=== PATIENT | female | born 1980 | race Caucasian/White ===

== ENCOUNTER 2016-10-22 22:42 | Emergency (ER) | payer OTHER ==
[~2016-10-22] VITALS: Ht 160 cm; Wt 141.7 kg
[~2016-10-22 22:42] MED LIST: ESCI20TA PO
[2016-10-22 22:49] VITALS: BP 144/92
--- NOTE | 2016-10-22 23:10 | NUR ---
TO ER BED 8
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
[2016-10-22] MEDS ORDERED: NACL 0.9% 1,000 ML IV ONE (23:45)
[2016-10-22] MEDS ORDERED: KETOROLAC 30 MG/ML VIAL IVP ONE (23:45)
[2016-10-23 00:07] LABS: ANION GAP 13.1 (8-16); CALCIUM 9.1 mg/dL (8.5-10.1); CARBON DIOXIDE 29.8 mmol/L (21-32); CREATININE 0.8 mg/dL (0.6-1.3); POTASSIUM 3.9 mmol/L (3.5-5.1)
[2016-10-23] MEDS ORDERED: NACL 0.9% 1,000 ML IV ONE (00:15)
--- NOTE | 2016-10-23 01:25 | NUR ---
IV removed, catheter intact and site benign. Applied folded 4x4 gauze and tape to stop bleeding.
--- NOTE | 2016-10-23 01:31 | NUR ---
Patient discharged with v/s stable. Written and verbal after care instructions given and explained. Patient alert, oriented and verbalized understanding of instructions. Ambulatory with steady gait. All questions addressed prior to discharge. ID band removed. Patient advised to follow up with PMD. Rx of FIORICET 50/325/40 given. Patient educated on indication of medication including possible reaction and side effects. Opportunity to ask questions provided and answered.
[2016-10-23 01:32] VITALS: BP 132/87
== END 2016-10-23 01:32 | disposition home or self-care (01) ==
LOC: MED 22:42
DX: R51 Headache (principal); E11.65 Type 2 diabetes mellitus with hyperglycemia; Z88.1 Allergy status to other antibiotic agents
CPT/HCPCS: 36415; 70450; 80048; 81002; 81025; 82948; 96361; 96374; 99285; J1885; J7030; 93005

== ENCOUNTER 2016-11-08 00:40 | Emergency (ER) | payer OTHER ==
[~2016-11-08] VITALS: Ht 160 cm; Wt 140.8 kg
[2016-11-08 00:43] VITALS: BP 151/93
--- NOTE | 2016-11-08 02:20 | NUR ---
PATIENT LEFT WITHOUT BEING SEEN BY DR. VALENTINE. NO FURTHER CARE PROVIDED FOR PATIENT.
== END 2016-11-08 02:20 | disposition left against medical advice (07) ==
LOC: MED 00:40
DX: R07.89 Other chest pain (principal); R19.7 Diarrhea, unspecified; Z53.21 Procedure and treatment not carried out due to patient leaving prior to being seen by health care provider
CPT/HCPCS: 93005

== ENCOUNTER 2018-01-07 20:36 | Emergency (ER) | payer OTHER ==
[~2018-01-07] VITALS: Ht 160 cm; Wt 140.7 kg
[2018-01-07 20:47] VITALS: BP 137/83
--- NOTE | 2018-01-07 21:02 | NUR ---
EKG OK BY ER MD DR WANG. PT IN ER [facility]
--- NOTE | 2018-01-07 22:24 | NUR ---
PT TAKEN TO BED 3
--- NOTE | 2018-01-07 22:25 | NUR ---
ASSUMED CARE OF PT AT THIS TIME. C/O RIGHT SIDED HICKS, NECK PAIN, AND CP X 1 DAY. AAOX4 WITH EVEN AND STEADY GAIT; PATIENT STATES PAIN OF 5/10; VSS; PATIENT POSITIONED FOR COMFORT; HOB ELEVATED; BEDRAILS UP X2; BED DOWN. ER MD MADE AWARE OF PT STATUS. WILL CONTINUE TO MONITOR.
--- NOTE | 2018-01-07 23:09 | NUR ---
Dr. Almanza evaluating patient at bedside.
[2018-01-07] MEDS ORDERED: KETOROLAC 60 MG/2 ML VIAL IM ONE (23:25)
[2018-01-07 23:44] VITALS: BP 138/84
== END 2018-01-07 23:44 | disposition home or self-care (01) ==
LOC: MED 20:36
DX: R51 Headache (principal); E11.9 Type 2 diabetes mellitus without complications; Z88.1 Allergy status to other antibiotic agents; Z79.899 Other long term (current) drug therapy
CPT/HCPCS: 82948; 96372; 99283; J1885; 81002; 81025

== ENCOUNTER 2018-02-26 23:52 | Emergency (ER) | payer OTHER ==
[~2018-02-26] VITALS: Ht 160 cm; Wt 142.2 kg
[2018-02-26 23:59] VITALS: BP 143/93
--- NOTE | 2018-02-27 00:06 | NUR ---
PT TO ER BED 12
[2018-02-27] MEDS ORDERED: LORazepam 1 MG TAB PO ONE (00:20)
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
[2018-02-27 01:12] VITALS: BP 155/56
== END 2018-02-27 01:12 | disposition home or self-care (01) ==
LOC: MED 23:52
DX: S33.5XXA Sprain of ligaments of lumbar spine, initial encounter (principal); E11.9 Type 2 diabetes mellitus without complications; Z88.1 Allergy status to other antibiotic agents; Z88.6 Allergy status to analgesic agent; V49.9XXA Car occupant (driver) (passenger) injured in unspecified traffic accident, initial encounter; Y93.I9 Activity, other involving external motion; Y92.89 Other specified places as the place of occurrence of the external cause; Y99.8 Other external cause status
CPT/HCPCS: 72110; 82948; 99284

== ENCOUNTER 2018-04-29 23:58 | Emergency (ER) | payer OTHER ==
[~2018-04-29] VITALS: Ht 160 cm; Wt 143.8 kg
[2018-04-30 00:01] VITALS: BP 139/85
--- NOTE | 2018-04-30 00:01 | NUR ---
TO BED # 3 AMBULATORY, REPORT GIVEN TO HELLEN GARRETT
[2018-04-30 00:05] VITALS: BP 139/85
--- NOTE | 2018-04-30 00:05 | NUR ---
PATIENT PRESENTS TO ED WITH C/O HEADACHE/EARACHE AND ANXIETY PT DENIES N/V/D; SKIN IS PINK/WARM/DRY; AAOX4 WITH EVEN AND STEADY GAIT; LUNGS CLEAR BL; HR EVEN AND REGULAR; PATIENT STATES PAIN OF 8/10 AT THIS TIME; VSS; PATIENT POSITIONED FOR COMFORT; HOB ELEVATED; BEDRAILS UP X2; BED DOWN. ER MD MADE AWARE OF PT STATUS.
--- NOTE | 2018-04-30 00:27 | NUR ---
Dr. Aguirre evaluating patient at bedside.
--- NOTE | 2018-04-30 00:32 | NUR ---
LAB AT BEDSIDE
[2018-04-30] MEDS ORDERED: NACL 0.9% 1,000 ML IV ONE (00:35)
[2018-04-30 00:46] LABS: BASOPHILS % (AUTO) 0.4 % (0.0-2.0); EOSINOPHILS # (AUTO) 0.2 K/uL (0-0.4); EOSINOPHILS % (AUTO) 2.2 % (0.0-4.0); HEMATOCRIT 41.6 % (36-48); HEMOGLOBIN 13.4 g/dL (12.0-16.0); LYMPHOCYTES # (AUTO) 2.5 K/uL (2.5-16.5); LYMPHOCYTES % (AUTO) 26.9 % (20.5-51.1); MEAN CORPUSCULAR HEMOGLOBIN 26 pg (27-31); MEAN CORPUSCULAR HGB CONC 32 g/dL (33-37); MEAN CORPUSCULAR VOLUME 81.9 fL (80-94); MONOCYTES # (AUTO) 0.5 K/uL (0.8-1.0); MONOCYTES % (AUTO) 5.4 % (1.7-9.3); NEUTROPHILS % (AUTO) 65.1 % (42.2-75.2); PLATELET COUNT (AUTO) 247 K/uL (140-450); RED BLOOD CELL COUNT(AUTO) 5.08 MIL/uL (4.20-5.40); RED CELL DISTRIBUTION WIDTH 14.9 % (11.6-13.7); WHITE BLOOD COUNT (AUTO) 9.2 K/uL (4.8-10.8)
[2018-04-30 00:56] LABS: ANION GAP 7.2 (8-16); CARBON DIOXIDE 31.6 mmol/L (21-32); CREATININE 0.7 mg/dL (0.6-1.3); POTASSIUM 3.8 mmol/L (3.5-5.1)
[2018-04-30 01:11] LABS: ALBUMIN 3.1 g/dL (3.4-5.0); FREE T4 (FREE THYROXINE) 0.96 ng/dL (0.76-1.46); THYROID STIMULATING HORMONE 3.5 uIU/mL (0.34-3.74); TOTAL BILIRUBIN 0.2 mg/dL (0.0-1.0)
[2018-04-30] MEDS ORDERED: FLUCONAZOLE 100 MG TAB PO ONE (01:25)
[2018-04-30 01:27] LABS: APPEARANCE,URINE CLEAR (CLEAR); BILIRUBIN,URINE NEGATIVE (NEGATIVE); BLOOD, URINE NEGATIVE (NEGATIVE); COLOR,URINE YELLOW (YELLOW); LEUKOCYTE ESTERASE ,URINE NEGATIVE (NEGATIVE); NITRITE, URINE NEGATIVE (NEGATIVE); UGLUCOSE 3+ (NEGATIVE)
--- NOTE | 2018-04-30 01:37 | NUR ---
IVF DONE, CALLED HOUSE SUP FOR PO MEDS.
[2018-04-30] MEDS ORDERED: FLUCONAZOLE 100 MG TAB ONE (01:43)
[2018-04-30 01:54] LABS: RBC,URINE 0-5 (RARE) /HPF (0-5); WBC,URINE 0-5 (RARE) /HPF (0-5); YEAST,URINE Rare /HPF (None Seen)
--- NOTE | 2018-04-30 01:55 | NUR ---
Patient discharged with v/s stable. Written and verbal after care instructions given and explained. Patient verbalized understanding. Ambulatory with steady gait. All questions addressed prior to discharge. Advised to follow up with PMD.
== END 2018-04-30 01:55 | disposition home or self-care (01) ==
LOC: MED 23:58
DX: F41.9 Anxiety disorder, unspecified (principal); B37.9 Candidiasis, unspecified; E11.9 Type 2 diabetes mellitus without complications; Z88.1 Allergy status to other antibiotic agents; Z88.6 Allergy status to analgesic agent; Z79.899 Other long term (current) drug therapy
CPT/HCPCS: 36415; 80053; 81001; 81025; 84439; 84443; 85025; 93005; 99284; J7030

== ENCOUNTER 2018-06-13 22:48 | Emergency (ER) | payer OTHER ==
[~2018-06-13] VITALS: Ht 160 cm; Wt 143.5 kg
[2018-06-13 23:08] VITALS: BP 117/82
[2018-06-14] MEDS ORDERED: DICYCLOMINE 20 MG/2 ML VIAL IM ONE
[2018-06-14] MEDS ORDERED: LORazepam 1 MG TAB PO ONE
[2018-06-14 00:19] LABS: BASOPHILS # (AUTO) 0.1 K/uL (0.00-0.22); BASOPHILS % (AUTO) 0.6 % (0.0-2.0); EOSINOPHILS # (AUTO) 0.2 K/uL (0-0.4); EOSINOPHILS % (AUTO) 1.9 % (0.0-4.0); HEMATOCRIT 42.5 % (36-48); LYMPHOCYTES # (AUTO) 2.8 K/uL (2.5-16.5); LYMPHOCYTES % (AUTO) 26.9 % (20.5-51.1); MEAN CORPUSCULAR HEMOGLOBIN 27 pg (27-31); MEAN CORPUSCULAR HGB CONC 33 g/dL (33-37); MEAN CORPUSCULAR VOLUME 81.6 fL (80-94); MONOCYTES # (AUTO) 0.5 K/uL (0.8-1.0); MONOCYTES % (AUTO) 4.8 % (1.7-9.3); NEUTROPHILS # (AUTO) 6.8 K/uL (1.8-7.7); NEUTROPHILS % (AUTO) 65.8 % (42.2-75.2); PLATELET COUNT (AUTO) 267 K/uL (140-450); RED BLOOD CELL COUNT(AUTO) 5.21 MIL/uL (4.20-5.40); RED CELL DISTRIBUTION WIDTH 14.7 % (11.6-13.7); WHITE BLOOD COUNT (AUTO) 10.3 K/uL (4.8-10.8)
[2018-06-14 00:30] LABS: ANION GAP 10.8 (8-16); CARBON DIOXIDE 30.9 mmol/L (21-32); CREATININE 0.8 mg/dL (0.6-1.3); POTASSIUM 3.7 mmol/L (3.5-5.1)
[2018-06-14 00:36] LABS: ALBUMIN 3.3 g/dL (3.4-5.0); TOTAL BILIRUBIN 0.3 mg/dL (0.0-1.0)
[2018-06-14 01:46] VITALS: BP 103/50
== END 2018-06-14 01:46 | disposition home or self-care (01) ==
LOC: MED 22:48
DX: R10.30 Lower abdominal pain, unspecified (principal); R10.11 Right upper quadrant pain; E11.9 Type 2 diabetes mellitus without complications; Z88.1 Allergy status to other antibiotic agents; Z88.6 Allergy status to analgesic agent; Z79.899 Other long term (current) drug therapy; Z98.51 Tubal ligation status
CPT/HCPCS: 36415; 74176; 80053; 81002; 81025; 82948; 83690; 85025; 96372; 99284; J0500

== ENCOUNTER 2018-06-28 12:52 | Emergency (ER) | payer OTHER ==
[~2018-06-28] VITALS: Ht 160 cm; Wt 144.8 kg
[2018-06-28 12:55] VITALS: BP 120/80
--- NOTE | 2018-06-28 13:16 | NUR ---
38 yo f bib self w/ c/o heavy vaginal bleeding x 4 days w/ back pain. pt reports she has not had a period in 1 year or more. wearing 4 pads and bleeding through her clothing. pmd told her to go to er. pt reports CP that began 30 min ago but thinks it is her anxiety because of fear of bleeding through in public, since [place]. rr even and unlabored, o2 sat 96%, color appropriate for ethnicity, speaking in full complete sentences. aaox4. denies radiation to arm or numbness.
--- NOTE | 2018-06-28 13:21 | NUR ---
US AT BEDSIDE.
[2018-06-28 13:28] LABS: BASOPHILS % (AUTO) 0.6 % (0.0-2.0); EOSINOPHILS # (AUTO) 0.2 K/uL (0-0.4); EOSINOPHILS % (AUTO) 2.9 % (0.0-4.0); HEMOGLOBIN 13.1 g/dL (12.0-16.0); LYMPHOCYTES # (AUTO) 2.1 K/uL (2.5-16.5); LYMPHOCYTES % (AUTO) 29.3 % (20.5-51.1); MEAN CORPUSCULAR HEMOGLOBIN 26 pg (27-31); MEAN CORPUSCULAR HGB CONC 32 g/dL (33-37); MEAN CORPUSCULAR VOLUME 81.7 fL (80-94); MONOCYTES # (AUTO) 0.3 K/uL (0.8-1.0); MONOCYTES % (AUTO) 4.1 % (1.7-9.3); NEUTROPHILS # (AUTO) 4.6 K/uL (1.8-7.7); NEUTROPHILS % (AUTO) 63.1 % (42.2-75.2); PLATELET COUNT (AUTO) 275 K/uL (140-450); RED BLOOD CELL COUNT(AUTO) 5.02 MIL/uL (4.20-5.40); WHITE BLOOD COUNT (AUTO) 7.3 K/uL (4.8-10.8)
[2018-06-28 13:34] LABS: ANION GAP 7.9 (8-16); CARBON DIOXIDE 29.6 mmol/L (21-32); CREATININE 0.8 mg/dL (0.6-1.3); POTASSIUM 3.5 mmol/L (3.5-5.1)
[2018-06-28 13:40] LABS: ALBUMIN 3.2 g/dL (3.4-5.0); PROTHROMBIN TIME 10.2 secs (10.8-13.4); TOTAL BILIRUBIN 0.4 mg/dL (0.0-1.0)
[2018-06-28] MEDS ORDERED: KETOROLAC 60 MG/2 ML VIAL IM ONE (14:10)
[2018-06-28 14:54] VITALS: BP 120/80
== END 2018-06-28 14:54 | disposition home or self-care (01) ==
LOC: MED 12:52
DX: N93.8 Other specified abnormal uterine and vaginal bleeding (principal); M54.5 Low back pain; E11.9 Type 2 diabetes mellitus without complications; Z88.1 Allergy status to other antibiotic agents; Z88.6 Allergy status to analgesic agent; Z79.899 Other long term (current) drug therapy
CPT/HCPCS: 36415; 76830; 80053; 82948; 85025; 85610; 85730; 96372; 99284; J1885; Q0092

== ENCOUNTER 2018-08-03 01:01 | Emergency (ER) | payer OTHER ==
[~2018-08-03] VITALS: Ht 160 cm; Wt 136.5 kg
[2018-08-03 01:08] VITALS: BP 145/86
--- NOTE | 2018-08-03 01:16 | NUR ---
PT AMBULATED TO BED 9 WITH VSS. PROVIDED WITH URINE CUP.
--- NOTE | 2018-08-03 01:29 | NUR ---
LAB AT BEDSIDE DRAWING LABS.
--- NOTE | 2018-08-03 01:38 | NUR ---
BIB SELF CO POUNDING CHEST WITH 5/10 TIGHTNESS TO CHEST SINCE 2099. PT ALSO REPORTS INTERMITTENT EPISODES OF DIZZINESS X 3 DAYS. DENIES SOB, OR RADIATING CHEST PAIN. PMH: ANXIETY, DEPRESSION, DM. RX: XANAX, MECLAZINE, JANUVIA, LEXAPRO.
--- NOTE | 2018-08-03 01:40 | NUR ---
XRAY AT BEDSIDE.
[2018-08-03 01:51] LABS: BASOPHILS % (AUTO) 0.3 % (0.0-2.0); EOSINOPHILS # (AUTO) 0.3 K/uL (0-0.4); EOSINOPHILS % (AUTO) 2.8 % (0.0-4.0); HEMATOCRIT 41.4 % (36-48); HEMOGLOBIN 13.6 g/dL (12.0-16.0); LYMPHOCYTES # (AUTO) 2.6 K/uL (2.5-16.5); LYMPHOCYTES % (AUTO) 28.8 % (20.5-51.1); MEAN CORPUSCULAR HEMOGLOBIN 27 pg (27-31); MEAN CORPUSCULAR HGB CONC 33 g/dL (33-37); MEAN CORPUSCULAR VOLUME 81.1 fL (80-94); MONOCYTES # (AUTO) 0.5 K/uL (0.8-1.0); MONOCYTES % (AUTO) 5.2 % (1.7-9.3); NEUTROPHILS # (AUTO) 5.6 K/uL (1.8-7.7); NEUTROPHILS % (AUTO) 62.9 % (42.2-75.2); PLATELET COUNT (AUTO) 303 K/uL (140-450); RED BLOOD CELL COUNT(AUTO) 5.11 MIL/uL (4.20-5.40); RED CELL DISTRIBUTION WIDTH 15.1 % (11.6-13.7)
[2018-08-03] MEDS ORDERED: ASPIRIN 81 MG TAB.CHEW PO ONE (02:05)
[2018-08-03] MEDS ORDERED: ALPRAZolam 0.5 MG TAB PO ONE (02:05)
[2018-08-03 02:13] LABS: ALBUMIN 3.3 g/dL (3.4-5.0); ANION GAP 11.7 (8-16); CARBON DIOXIDE 28.8 mmol/L (21-32); CREATININE 0.7 mg/dL (0.6-1.3); POTASSIUM 3.5 mmol/L (3.5-5.1); TOTAL BILIRUBIN 0.2 mg/dL (0.0-1.0)
[2018-08-03 03:12] VITALS: BP 138/78
== END 2018-08-03 03:08 | disposition home or self-care (01) ==
LOC: MED 01:01
DX: F41.9 Anxiety disorder, unspecified (principal); E11.9 Type 2 diabetes mellitus without complications; I10 Essential (primary) hypertension; Z88.1 Allergy status to other antibiotic agents; Z79.899 Other long term (current) drug therapy
CPT/HCPCS: 36415; 71045; 80053; 81025; 84484; 85025; 85379; 87086; 93005; 99284

== ENCOUNTER 2018-10-16 00:30 | Emergency (ER) | payer OTHER ==
[~2018-10-16] VITALS: Ht 160 cm; Wt 143.5 kg
[2018-10-16 00:30] VITALS: BP 131/64
[2018-10-16 00:33] VITALS: BP 131/64
--- NOTE | 2018-10-16 00:33 | NUR ---
TO LOBBY A/W BED , AMBULATORY
--- NOTE | 2018-10-16 00:40 | NUR ---
PATIENT LEFT WITHOUT BEING SEEN BY DR. TODD. NO FURTHER CARE PROVIDED FOR PATIENT.
--- NOTE | 2018-10-16 00:45 | NUR ---
PATIENT CALLED FOR THE SECOND TIME NO RESPONSE.
== END 2018-10-16 00:40 | disposition left against medical advice (07) ==
LOC: MED 00:30
DX: R42 Dizziness and giddiness (principal); N89.8 Other specified noninflammatory disorders of vagina; L29.9 Pruritus, unspecified; Z53.21 Procedure and treatment not carried out due to patient leaving prior to being seen by health care provider

== ENCOUNTER 2018-10-21 02:15 | Emergency (ER) | payer OTHER ==
[~2018-10-21] VITALS: Ht 160 cm; Wt 163.3 kg
[2018-10-21 02:23] VITALS: BP 121/65
--- NOTE | 2018-10-21 02:25 | NUR ---
TO LOBBY A/W BED, AMBULATORY
--- NOTE | 2018-10-21 02:30 | NUR ---
EKG DONE ERMD NOTED, WITH NSR RESULT.
--- NOTE | 2018-10-21 02:55 | NUR ---
PT TAKEN TO BED 9. AMBULATORY STEADY GAIT.
[2018-10-21 04:14] LABS: BASOPHILS % (AUTO) 0.6 % (0.0-2.0); EOSINOPHILS # (AUTO) 0.2 K/uL (0-0.4); EOSINOPHILS % (AUTO) 2.5 % (0.0-4.0); HEMATOCRIT 41.1 % (36-48); HEMOGLOBIN 13.5 g/dL (12.0-16.0); LYMPHOCYTES # (AUTO) 2.5 K/uL (2.5-16.5); MEAN CORPUSCULAR HEMOGLOBIN 26 pg (27-31); MEAN CORPUSCULAR HGB CONC 33 g/dL (33-37); MEAN CORPUSCULAR VOLUME 78.1 fL (80-94); MONOCYTES # (AUTO) 0.4 K/uL (0.8-1.0); MONOCYTES % (AUTO) 4.7 % (1.7-9.3); NEUTROPHILS # (AUTO) 5.1 K/uL (1.8-7.7); NEUTROPHILS % (AUTO) 62.2 % (42.2-75.2); PLATELET COUNT (AUTO) 284 K/uL (140-450); RED BLOOD CELL COUNT(AUTO) 5.26 MIL/uL (4.20-5.40); RED CELL DISTRIBUTION WIDTH 15.1 % (11.6-13.7); WHITE BLOOD COUNT (AUTO) 8.3 K/uL (4.8-10.8)
[2018-10-21 04:30] LABS: ANION GAP 12.1 (8-16); CARBON DIOXIDE 27.5 mmol/L (21-32); CREATININE 0.8 mg/dL (0.6-1.3); POTASSIUM 3.6 mmol/L (3.5-5.1)
[2018-10-21 04:34] LABS: ALBUMIN 3.3 g/dL (3.4-5.0); TOTAL BILIRUBIN 0.3 mg/dL (0.0-1.0)
--- NOTE | 2018-10-21 04:35 | NUR ---
PT TAKEN TO RAD
[2018-10-21 04:36] LABS: CREATINE KINASE MB 1.3 ng/mL (0-3.6)
--- NOTE | 2018-10-21 04:49 | NUR ---
PT TAKEN TO CT VIA WC.
--- NOTE | 2018-10-21 04:52 | NUR ---
PT RETURN FROM RAD
[2018-10-21 05:48] VITALS: BP 113/56
== END 2018-10-21 05:48 | disposition home or self-care (01) ==
LOC: MED 02:15
DX: R42 Dizziness and giddiness (principal); E11.9 Type 2 diabetes mellitus without complications; I10 Essential (primary) hypertension; Z79.899 Other long term (current) drug therapy; Z88.5 Allergy status to narcotic agent; Z88.1 Allergy status to other antibiotic agents
CPT/HCPCS: 36415; 70450; 71045; 80053; 81002; 81025; 82550; 82553; 84484; 85025; 93005; 99284; Q0092

== ENCOUNTER 2018-11-09 13:12 | Emergency (ER) | payer OTHER ==
[~2018-11-09] VITALS: Ht 160 cm; Wt 137.4 kg
[2018-11-09 13:18] VITALS: BP 161/89
--- NOTE | 2018-11-09 13:34 | NUR ---
Patient ambulated to bed 6. RN evaluating patient at bedside.
--- NOTE | 2018-11-09 13:35 | NUR ---
C/O epigastric pain and headache 11/27, sharp & constant since yesterday. Pt states she went to urgent care yesterday and was given insulin. Pt states she came to the ER because she continued to have epigastric pain/bloating and non-radiating headache. Neuro check intact, pt alert and answering questions appropriately. LBM today, regular. Abdomen flat, soft and non-tender. pt denied n/v/d/fever. FSBS 247. bed in low position, side rail up x1.
--- NOTE | 2018-11-09 13:37 | NUR ---
Dr. Hendricks evaluating patient at bedside.
[2018-11-09] MEDS ORDERED: KETOROLAC 60 MG/2 ML VIAL IM ONE (13:45)
[2018-11-09 14:25] VITALS: BP 157/85
--- NOTE | 2018-11-09 14:25 | NUR ---
Patient discharged with v/s stable. Written and verbal after care instructions given and explained. Patient alert, oriented and verbalized understanding of instructions. Ambulatory with steady gait. All questions addressed prior to discharge. ID band removed. Patient advised to follow up with PMD. Rx of norco, ibuprofen, zofran given. Patient educated on indication of medication including possible reaction and side effects. Opportunity to ask questions provided and answered.
== END 2018-11-09 14:25 | disposition home or self-care (01) ==
LOC: MED 13:12
DX: R51 Headache (principal); R10.13 Epigastric pain; M54.2 Cervicalgia; E11.65 Type 2 diabetes mellitus with hyperglycemia; I10 Essential (primary) hypertension; Z88.1 Allergy status to other antibiotic agents; Z79.899 Other long term (current) drug therapy; Z98.51 Tubal ligation status
CPT/HCPCS: 81002; 81025; 82948; 96372; 99283; J1885

== ENCOUNTER 2018-12-19 01:54 | Emergency (ER) | payer OTHER ==
[~2018-12-19] VITALS: Ht 160 cm; Wt 145.7 kg
[2018-12-19 02:00] VITALS: BP 121/82
--- NOTE | 2018-12-19 02:00 | NUR ---
TO BED # 07 AMBULATORY
[2018-12-19] MEDS ORDERED: FLUCONAZOLE 100 MG TAB PO ONE (02:15)
[2018-12-19] MEDS ORDERED: INSULIN REGULAR, HUMAN 100 UNIT/ML VIAL SUBQ ONE (02:15)
[2018-12-19 02:27] LABS: BASOPHILS # (AUTO) 0.1 K/uL (0.00-0.22); BASOPHILS % (AUTO) 1.7 % (0.0-2.0); EOSINOPHILS # (AUTO) 0.2 K/uL (0-0.4); EOSINOPHILS % (AUTO) 2.1 % (0.0-4.0); HEMATOCRIT 40.9 % (36-48); HEMOGLOBIN 13.5 g/dL (12.0-16.0); LYMPHOCYTES # (AUTO) 2.1 K/uL (2.5-16.5); LYMPHOCYTES % (AUTO) 28.9 % (20.5-51.1); MEAN CORPUSCULAR HEMOGLOBIN 26 pg (27-31); MEAN CORPUSCULAR HGB CONC 33 g/dL (33-37); MEAN CORPUSCULAR VOLUME 77.5 fL (80-94); MONOCYTES # (AUTO) 0.3 K/uL (0.8-1.0); MONOCYTES % (AUTO) 3.8 % (1.7-9.3); NEUTROPHILS # (AUTO) 4.6 K/uL (1.8-7.7); NEUTROPHILS % (AUTO) 63.5 % (42.2-75.2); PLATELET COUNT (AUTO) 297 K/uL (140-450); RED BLOOD CELL COUNT(AUTO) 5.28 MIL/uL (4.20-5.40); RED CELL DISTRIBUTION WIDTH 16.4 % (11.6-13.7); WHITE BLOOD COUNT (AUTO) 7.3 K/uL (4.8-10.8)
--- NOTE | 2018-12-19 02:30 | NUR ---
38 Y/O FEMALE PRESENTS TO ED, C/O HYPERGLYCEMIA. PT STATES HER BLOOD SUGAR HAS BEEN RUNNING HIGH FOR THE PAST 3 DAYS, RANGING FROM 300-400, UNABLE TO PROVIDE A DEFINITE BLOOD SUGAR READING. BLOOD SUGAR IS 291 AT ADMISSION. PT STATES SHE IS COMPLIANT WITH MEDICATION REGIMEN FOR HER DIABETES. PT C/O ITCHING ON GENITAL REGION X3 DAYS, SHE STATES SHE GETS A YEAST INFECTION DURING HYPERGLYCEMIC EPISODES. PT HAS HX OF DEPRESSION, ANXIETY AND HTN. PT VSS. DR XAVIER AWARE. WILL CONTINUE TO MONITOR.
[2018-12-19 02:33] LABS: APPEARANCE,URINE CLEAR (CLEAR); BILIRUBIN,URINE NEGATIVE (NEGATIVE); BLOOD, URINE TRACE-L (NEGATIVE); COLOR,URINE YELLOW (YELLOW); LEUKOCYTE ESTERASE ,URINE NEGATIVE (NEGATIVE); NITRITE, URINE NEGATIVE (NEGATIVE); UGLUCOSE 3+ (NEGATIVE)
[2018-12-19 02:36] LABS: ANION GAP 12.1 (8-16); CARBON DIOXIDE 30.4 mmol/L (21-32); CREATININE 0.8 mg/dL (0.6-1.3); POTASSIUM 3.5 mmol/L (3.5-5.1)
[2018-12-19 02:42] LABS: ALBUMIN 3.2 g/dL (3.4-5.0); TOTAL BILIRUBIN 0.3 mg/dL (0.0-1.0)
[2018-12-19 02:45] LABS: RBC,URINE NONE SEEN /HPF (0-5); WBC,URINE 0-5 /HPF (0-5)
[2018-12-19] MEDS ORDERED: FLUCONAZOLE 100 MG TAB ONE (02:56)
[2018-12-19 03:21] VITALS: BP 132/65
--- NOTE | 2018-12-19 03:21 | NUR ---
Patient discharged with v/s stable. Written and verbal after care instructions given and explained. Patient verbalized understanding. Ambulatory with to car. All questions addressed prior to discharge. Advised to follow up with PMD.
== END 2018-12-19 03:21 | disposition home or self-care (01) ==
LOC: MED 01:54
DX: E11.65 Type 2 diabetes mellitus with hyperglycemia (principal); B37.3 Candidiasis of vulva and vagina; E11.9 Type 2 diabetes mellitus without complications; I10 Essential (primary) hypertension; Z88.1 Allergy status to other antibiotic agents; Z79.899 Other long term (current) drug therapy
CPT/HCPCS: 36415; 80053; 81001; 82948; 85025; 96372; 99283; J1815

== ENCOUNTER 2018-12-23 03:10 | Emergency (ER) | payer OTHER ==
[~2018-12-23] VITALS: Ht 160 cm; Wt 141.5 kg
[2018-12-23 03:20] VITALS: BP 141/73
--- NOTE | 2018-12-23 03:20 | NUR ---
TO BED #09 AMBULATORY
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
[2018-12-23 03:47] LABS: APPEARANCE,URINE CLEAR (CLEAR); BILIRUBIN,URINE NEGATIVE (NEGATIVE); BLOOD, URINE NEGATIVE (NEGATIVE); COLOR,URINE YELLOW (YELLOW); LEUKOCYTE ESTERASE ,URINE NEGATIVE (NEGATIVE); NITRITE, URINE NEGATIVE (NEGATIVE); UGLUCOSE 3+ (NEGATIVE)
[2018-12-23 03:47] LABS: BASOPHILS % (AUTO) 0.5 % (0.0-2.0); EOSINOPHILS # (AUTO) 0.2 K/uL (0-0.4); EOSINOPHILS % (AUTO) 2.3 % (0.0-4.0); HEMATOCRIT 40.2 % (36-48); LYMPHOCYTES # (AUTO) 2.4 K/uL (2.5-16.5); LYMPHOCYTES % (AUTO) 29.9 % (20.5-51.1); MEAN CORPUSCULAR HEMOGLOBIN 25 pg (27-31); MEAN CORPUSCULAR HGB CONC 32 g/dL (33-37); MEAN CORPUSCULAR VOLUME 77.9 fL (80-94); MONOCYTES # (AUTO) 0.4 K/uL (0.8-1.0); MONOCYTES % (AUTO) 4.4 % (1.7-9.3); NEUTROPHILS # (AUTO) 5.1 K/uL (1.8-7.7); NEUTROPHILS % (AUTO) 62.9 % (42.2-75.2); PLATELET COUNT (AUTO) 259 K/uL (140-450); RED BLOOD CELL COUNT(AUTO) 5.15 MIL/uL (4.20-5.40); RED CELL DISTRIBUTION WIDTH 16.2 % (11.6-13.7); WHITE BLOOD COUNT (AUTO) 8.1 K/uL (4.8-10.8)
[2018-12-23 03:57] LABS: RBC,URINE 0-5 /HPF (0-5); WBC,URINE 0-5 /HPF (0-5)
[2018-12-23 04:02] LABS: ANION GAP 11.9 (8-16); CARBON DIOXIDE 29.7 mmol/L (21-32); CREATININE 0.9 mg/dL (0.6-1.3); POTASSIUM 3.6 mmol/L (3.5-5.1)
[2018-12-23] MEDS ORDERED: NACL 0.9% 1,000 ML IV ONE (04:05)
[2018-12-23 04:11] LABS: TOTAL BILIRUBIN 0.2 mg/dL (0.0-1.0)
[2018-12-23] MEDS ORDERED: INSULIN REGULAR, HUMAN 100 UNIT/ML VIAL IV ONE (05:25)
--- NOTE | 2018-12-23 05:43 | NUR ---
PT ON L SIDE LAYING POSITION IN BED, RR EVEN AND UNLABORED. VSS. BLOOD GLUCOSE 312, ADMINISTERED HUMALIN R 10 UNITS IVP WITH EDUCATION, FOOD GIVEN ALONG WITH MED, PT VERBALIZED UNDERSTANDING. ALL NEEDS MET.
[2018-12-23] MEDS ORDERED: INSULIN REGULAR, HUMAN 100 UNIT/ML VIAL IVP ONE (06:30)
[2018-12-23] MEDS ORDERED: INSULIN REGULAR, HUMAN 100 UNIT/ML VIAL SUBQ ONE (06:40)
--- NOTE | 2018-12-23 06:47 | NUR ---
PT LAYING IN BED, FAMILY/FRIEND AT BEDSIDE. RR EVEN AND UNLABORED. VSS. ADMINISTERED HUMULIN R 4 UNITS SUBQ WITH EDUCATION. PER DR RAND, PT INSTRUCTED TO EAT BREAKFAST AND TAKE PT'S RX MORNING DM MEDS.
[2018-12-23 07:00] VITALS: BP 122/69
--- NOTE | 2018-12-23 07:00 | NUR ---
Patient discharged with v/s stable by Dr Montenegro. Written and verbal after care instructions given and explained by Dr Montenegro. Patient verbalized understanding. Ambulatory with steady gait. All questions addressed prior to discharge by Dr Montenegro. Advised to follow up with PMD by Dr Montenegro.
== END 2018-12-23 07:00 | disposition home or self-care (01) ==
LOC: MED 03:10
DX: E11.65 Type 2 diabetes mellitus with hyperglycemia (principal); R10.9 Unspecified abdominal pain; R11.2 Nausea with vomiting, unspecified; F41.9 Anxiety disorder, unspecified; F32.9 Major depressive disorder, single episode, unspecified; Z98.890 Other specified postprocedural states; Z79.899 Other long term (current) drug therapy; Z88.1 Allergy status to other antibiotic agents
CPT/HCPCS: 36415; 80053; 81001; 81025; 82948; 83690; 85025; 96361; 96372; 96374; 99283; J1815; J7030

== ENCOUNTER 2019-01-03 03:49 | Emergency (ER) | payer OTHER ==
[~2019-01-03] VITALS: Ht 160 cm; Wt 136.5 kg
--- NOTE | 2019-01-03 03:53 | NUR ---
PT TAKEN TO BED 2
--- NOTE | 2019-01-03 04:00 | NUR ---
38 yo female bib self comes to ED for c/o nausea vomiting. pt states she was recently dx with dm type II and was given RX of lantus and oral antidiabetic meds. pt was @ [facility] and was unsure of frequency/time of medication. pt had x1 episode n/v. pt denies dizziness/lightheadedness. abd soft non distended. denies fever chills. gurney locked in lowest position. call light within reach, will update ERMD. hx: dm type II, depression, anxiety med: lantus, januvia "other meds for depression, and anxiety" ax: amoxicillin lmp: last [id number]
[2019-01-03 04:01] VITALS: BP 148/96
--- NOTE | 2019-01-03 04:32 | NUR ---
Dr. Almanza examining patient.
[2019-01-03] MEDS ORDERED: NACL 0.9% 1,000 ML IV ONE (04:40)
[2019-01-03 05:43] VITALS: BP 127/56
== END 2019-01-03 05:43 | disposition home or self-care (01) ==
LOC: MED 03:49
DX: K52.9 Noninfective gastroenteritis and colitis, unspecified (principal); E11.65 Type 2 diabetes mellitus with hyperglycemia; I10 Essential (primary) hypertension; F41.9 Anxiety disorder, unspecified; F32.9 Major depressive disorder, single episode, unspecified; Z79.899 Other long term (current) drug therapy; Z88.1 Allergy status to other antibiotic agents
CPT/HCPCS: 82948; 96360; 99283; J7030

== ENCOUNTER 2019-02-16 00:01 | Emergency (ER) | payer OTHER ==
[~2019-02-16] VITALS: Ht 160 cm; Wt 143.3 kg
[2019-02-16 00:05] VITALS: BP 140/90
--- NOTE | 2019-02-16 00:12 | NUR ---
PT AMBULATED TO BED #1
--- NOTE | 2019-02-16 00:45 | NUR ---
PT. HERE WITH A CHIEF COMPLAINT OF ON AND OFF CHEST PAIN DESCRIBED SOMEBODY SITTING ON HER CHEST,NON-RADIATING. ALSO VERBALIZED HAVING RIGHT LOWER QUADRANT PAIN,URINARY FREQUENCY,WHITISH VAGINAL DISCHARGE. DENIES FEVER,NAUSEA,VOMITING BUT HAD DIARRHEA YESTERDAY X3.
--- NOTE | 2019-02-16 01:08 | NUR ---
12 LEAD EKG DONE. REPORT HANDED OVER TO THE ER-MD.
--- NOTE | 2019-02-16 01:20 | NUR ---
URINE HCG AND DIPSTICK DONE. ER-MD CAME BY BEDSIDE TO EVALUATE PT.
--- NOTE | 2019-02-16 01:47 | NUR ---
GAUGE 18 IV LINE ESTABLISHED TO THE RIGHT AC. BLOOD ALSO DRAWN,URINE SPECIMEN HANDER OVER TO THE COMMERCIAL LEASING MANAGER. PT. REFUSED CT SCAN OF ABDOMEN AND PELVIS WITH IV CONTRAST. WILL NOTIFY
[2019-02-16 02:04] LABS: APPEARANCE,URINE CLEAR (CLEAR); BILIRUBIN,URINE NEGATIVE (NEGATIVE); BLOOD, URINE NEGATIVE (NEGATIVE); COLOR,URINE YELLOW (YELLOW); LEUKOCYTE ESTERASE ,URINE NEGATIVE (NEGATIVE); NITRITE, URINE NEGATIVE (NEGATIVE); UGLUCOSE 3+ (NEGATIVE)
[2019-02-16 02:10] LABS: BASOPHILS % (AUTO) 0.3 % (0.0-2.0); EOSINOPHILS # (AUTO) 0.2 K/uL (0-0.4); EOSINOPHILS % (AUTO) 2.5 % (0.0-4.0); HEMATOCRIT 42.7 % (36-48); HEMOGLOBIN 13.7 g/dL (12.0-16.0); LYMPHOCYTES # (AUTO) 2.8 K/uL (2.5-16.5); LYMPHOCYTES % (AUTO) 33.8 % (20.5-51.1); MEAN CORPUSCULAR HEMOGLOBIN 26 pg (27-31); MEAN CORPUSCULAR HGB CONC 32 g/dL (33-37); MONOCYTES # (AUTO) 0.3 K/uL (0.8-1.0); MONOCYTES % (AUTO) 4.2 % (1.7-9.3); NEUTROPHILS # (AUTO) 4.9 K/uL (1.8-7.7); NEUTROPHILS % (AUTO) 59.2 % (42.2-75.2); PLATELET COUNT (AUTO) 277 K/uL (140-450); RED BLOOD CELL COUNT(AUTO) 5.34 MIL/uL (4.20-5.40); RED CELL DISTRIBUTION WIDTH 16.1 % (11.6-13.7); WHITE BLOOD COUNT (AUTO) 8.3 K/uL (4.8-10.8)
[2019-02-16 02:17] LABS: RBC,URINE 0-5 /HPF (0-5); WBC,URINE 0-5 /HPF (0-5); YEAST,URINE Few /HPF (None Seen)
[2019-02-16 02:26] LABS: ALBUMIN 3.3 g/dL (3.4-5.0); ANION GAP 14.1 (8-16); CARBON DIOXIDE 29.9 mmol/L (21-32); CREATININE 0.8 mg/dL (0.6-1.3); TOTAL BILIRUBIN 0.3 mg/dL (0.0-1.0)
--- NOTE | 2019-02-16 02:55 | NUR ---
PORTABLE CXR DONE.
[2019-02-16] MEDS ORDERED: FLUCONAZOLE 100 MG TAB PO ONE (03:50)
[2019-02-16] MEDS ORDERED: FLUCONAZOLE 100 MG TAB ONE ×2 (04:00→04:02)
--- NOTE | 2019-02-16 04:08 | NUR ---
DIFLUCAN 150 MG PO GIVEN ORDERED.
--- NOTE | 2019-02-16 04:10 | NUR ---
DISCHARGED STABLE AND IMPROVED. COPY OF LABS,VERBAL AND WRITTEN AFTERCARE INSTRUCTIONS GIVEN. VERBALIZED UNDERSTANDING.
[2019-02-16 04:21] VITALS: BP 112/65
== END 2019-02-16 04:10 | disposition home or self-care (01) ==
LOC: MED 00:01
DX: R07.89 Other chest pain (principal); R10.31 Right lower quadrant pain; N89.8 Other specified noninflammatory disorders of vagina; E11.9 Type 2 diabetes mellitus without complications; F41.9 Anxiety disorder, unspecified; F32.9 Major depressive disorder, single episode, unspecified; Z79.899 Other long term (current) drug therapy; Z88.1 Allergy status to other antibiotic agents
CPT/HCPCS: 36415; 71045; 80053; 81001; 82948; 83690; 84484; 85025; 87086; 93005; 99284; Q0092

== ENCOUNTER 2019-04-10 00:20 | Emergency (ER) | payer OTHER ==
[~2019-04-10] VITALS: Ht 160 cm; Wt 144.8 kg
[2019-04-10 00:30] VITALS: BP 125/70
[2019-04-10 01:20] VITALS: BP 125/70
== END 2019-04-10 01:20 | disposition left against medical advice (07) ==
LOC: MED 00:20
DX: R42 Dizziness and giddiness (principal); R19.7 Diarrhea, unspecified; R11.2 Nausea with vomiting, unspecified; N89.8 Other specified noninflammatory disorders of vagina; Z53.21 Procedure and treatment not carried out due to patient leaving prior to being seen by health care provider

== ENCOUNTER 2019-05-08 02:10 | Emergency (ER) | payer OTHER ==
[~2019-05-08] VITALS: Ht 160 cm; Wt 137.4 kg
[2019-05-08 02:20] VITALS: BP 126/67
--- NOTE | 2019-05-08 02:29 | NUR ---
PT WHEELCHAIRED TO ER BED 5
--- NOTE | 2019-05-08 02:41 | NUR ---
38 Y/O F PRESENTS TO ED WITH C/O DIFFICULTY BREATHING. PT REPORTS FEELING SHORT OF BREATH ANS DIZZINESS WHILE OUT WITH FRIENDS. O2 SATURATION AT 96% ON RA. LUNGS CLEAR THROUGHOUT. PT ATTACHED TO BEDSIDE MONITOR. HOB ELEVATED FOR COMFORT. BEDRAIL X1 UP. WILL CONTINUE TO MONITOR.
--- NOTE | 2019-05-08 02:52 | NUR ---
O2 SATURATION DROPPED TO 92% ON RA. PT PLACED ON O2 AT 2L VIA NASAL CANNULA. O2 SATURATION MAINTAINED AT 100%.
--- NOTE | 2019-05-08 03:57 | NUR ---
PT SEEN WITH EYES CLOSED. VISIBLE CHEST RISE AND FALL NOTED. WILL CONTINUE TO MONTIOR. BEDRAIL X1 UP.
--- NOTE | 2019-05-08 04:04 | NUR ---
Dr. Nassar examining patient.
--- NOTE | 2019-05-08 04:45 | NUR ---
PT UP FOR DISCHARGE AND REQUESTING NORLA FOR PAIN MANAGEMENT. PT ASKED TO SPEAK WITH DR. COOPER.
[2019-05-08] MEDS ORDERED: FLUCONAZOLE 100 MG TAB PO ONE (05:00)
[2019-05-08 05:17] VITALS: BP 111/60
--- NOTE | 2019-05-08 05:17 | NUR ---
Patient discharged with v/s stable. Written and verbal after care instructions given and explained. Patient alert, oriented and verbalized understanding of instructions. Ambulatory with steady gait. All questions addressed prior to discharge. ID band removed. Patient advised to follow up with PMD. Rx of DIFLUCAN WAS given. Patient educated on indication of medication including possible reaction and side effects. Opportunity to ask questions provided and answered.
== END 2019-05-08 05:17 | disposition home or self-care (01) ==
LOC: MED 02:10
DX: R06.00 Dyspnea, unspecified (principal); E11.9 Type 2 diabetes mellitus without complications; Z79.899 Other long term (current) drug therapy; Z88.1 Allergy status to other antibiotic agents
CPT/HCPCS: 81002; 99283

== ENCOUNTER 2019-09-04 05:10 | Emergency (ER) | payer OTHER ==
[~2019-09-04] VITALS: Ht 160 cm; Wt 141.5 kg
[2019-09-04 05:12] VITALS: BP 128/80
[2019-09-04] MEDS ORDERED: NACL 0.9% 1,000 ML IV ONE (06:12)
[2019-09-04] MEDS ORDERED: ONDANSETRON 4 MG/2 ML VIAL IVP ONE (06:15)
[2019-09-04] MEDS ORDERED: MORPHINE SULFATE 4 MG/ML SYR IVP ONE (06:15)
[2019-09-04] MEDS ORDERED: KETOROLAC 30 MG/ML VIAL IVP ONE (06:30)
[2019-09-04 06:39] LABS: APPEARANCE,URINE CLEAR (CLEAR); BILIRUBIN,URINE NEGATIVE (NEGATIVE); BLOOD, URINE NEGATIVE (NEGATIVE); COLOR,URINE YELLOW (YELLOW); LEUKOCYTE ESTERASE ,URINE NEGATIVE (NEGATIVE); NITRITE, URINE NEGATIVE (NEGATIVE); PH,URINE 5.5 (5.0-9.0); UGLUCOSE 3+ (NEGATIVE)
[2019-09-04 06:39] LABS: BASOPHILS # (AUTO) 0.1 K/uL (0.00-0.22); BASOPHILS % (AUTO) 0.6 % (0.0-2.0); EOSINOPHILS # (AUTO) 0.2 K/uL (0-0.4); EOSINOPHILS % (AUTO) 2.5 % (0.0-4.0); HEMATOCRIT 43.9 % (36-48); HEMOGLOBIN 14.3 g/dL (12.0-16.0); LYMPHOCYTES # (AUTO) 2.5 K/uL (2.5-16.5); LYMPHOCYTES % (AUTO) 31.1 % (20.5-51.1); MEAN CORPUSCULAR HEMOGLOBIN 27 pg (27-31); MEAN CORPUSCULAR HGB CONC 33 g/dL (33-37); MEAN CORPUSCULAR VOLUME 81.4 fL (80-94); MONOCYTES # (AUTO) 0.3 K/uL (0.8-1.0); MONOCYTES % (AUTO) 4.2 % (1.7-9.3); NEUTROPHILS # (AUTO) 4.9 K/uL (1.8-7.7); NEUTROPHILS % (AUTO) 61.6 % (42.2-75.2); PLATELET COUNT (AUTO) 268 K/uL (140-450); RED BLOOD CELL COUNT(AUTO) 5.39 MIL/uL (4.20-5.40); RED CELL DISTRIBUTION WIDTH 14.6 % (11.6-13.7); WHITE BLOOD COUNT (AUTO) 7.9 K/uL (4.8-10.8)
[2019-09-04 07:04] LABS: ALBUMIN 3.1 g/dL (3.4-5.0); ANION GAP 13.1 (8-16); CARBON DIOXIDE 28.6 mmol/L (21-32); CREATININE 0.9 mg/dL (0.6-1.3); POTASSIUM 3.7 mmol/L (3.5-5.1); TOTAL BILIRUBIN 0.3 mg/dL (0.0-1.0)
[2019-09-04 09:17] VITALS: BP 129/83
== END 2019-09-04 09:28 | disposition home or self-care (01) ==
LOC: MED 05:10
DX: R10.9 Unspecified abdominal pain (principal); E11.9 Type 2 diabetes mellitus without complications; Z88.0 Allergy status to penicillin; Z79.899 Other long term (current) drug therapy
CPT/HCPCS: 36415; 74176; 80053; 81003; 81025; 83690; 85025; 96374; 96375; 99284; J1885; J2405; J7030; 81002; J2270

== ENCOUNTER 2019-10-22 00:50 | Emergency (ER) | payer OTHER ==
[~2019-10-22] VITALS: Ht 160 cm; Wt 139.3 kg
[2019-10-22 00:55] VITALS: BP 110/85
--- NOTE | 2019-10-22 01:02 | NUR ---
PT TAKEN TO BED 2
--- NOTE | 2019-10-22 01:03 | NUR ---
Dr. Wolfe examining patient.
[2019-10-22] MEDS ORDERED: ONDANSETRON 4 MG/2 ML VIAL IVP ONE (01:15)
[2019-10-22] MEDS ORDERED: KETOROLAC 30 MG/ML VIAL IVP ONE (01:15)
[2019-10-22] MEDS ORDERED: ONDANSETRON 4 MG/2 ML VIAL IM ONE (01:25)
[2019-10-22] MEDS ORDERED: KETOROLAC 30 MG/ML VIAL IM ONE (01:25)
[2019-10-22 01:36] LABS: APPEARANCE,URINE CLEAR (CLEAR); BILIRUBIN,URINE NEGATIVE (NEGATIVE); BLOOD, URINE NEGATIVE (NEGATIVE); COLOR,URINE YELLOW (YELLOW); LEUKOCYTE ESTERASE ,URINE NEGATIVE (NEGATIVE); NITRITE, URINE NEGATIVE (NEGATIVE); UGLUCOSE 3+ (NEGATIVE)
--- NOTE | 2019-10-22 01:40 | NUR ---
39 Y/O F PRESENTS TO ED C/O RT ABD PAIN X 2 DAYS. PT STATES PAIN JUST STARTED SUDDENLY AND HAS BEEN CONSISTENT. PER PT, PAIN MEDICATION HASN'T BEEN HELPING AND HAS TROUBLE SLEEPING DUE TO PAIN. PT DENIES N/V/D, PAIN DOESN'T RADIATE ANYWHERE. PT DENIES PAINFUL URINATION. RR EVEN AND UNLABORED. LUNG SOUNDS CLEAR UPON AUSCULTATION. BED IN LOWESTP OSITION, SIDE RAIL UP X1. WILL CONTINUE TO MONITOR. MHX: DIABETES ALLERGIES: AMOXICILLIN
[2019-10-22 01:48] LABS: ALBUMIN 3.3 g/dL (3.4-5.0); CARBON DIOXIDE 27.8 mmol/L (21-32); CREATININE 0.9 mg/dL (0.6-1.3); POTASSIUM 3.8 mmol/L (3.5-5.1); TOTAL BILIRUBIN 0.3 mg/dL (0.0-1.0)
[2019-10-22 01:50] LABS: RBC,URINE 0-5 /HPF (0-5); WBC,URINE NONE SEEN /HPF (0-5)
--- NOTE | 2019-10-22 01:52 | NUR ---
Ultrasound at bedside.
[2019-10-22 01:58] LABS: BASOPHILS % (AUTO) 0.4 % (0.0-2.0); EOSINOPHILS # (AUTO) 0.2 K/uL (0-0.4); EOSINOPHILS % (AUTO) 2.2 % (0.0-4.0); HEMATOCRIT 43.4 % (36-48); HEMOGLOBIN 14.5 g/dL (12.0-16.0); LYMPHOCYTES # (AUTO) 2.8 K/uL (2.5-16.5); LYMPHOCYTES % (AUTO) 29.3 % (20.5-51.1); MEAN CORPUSCULAR HEMOGLOBIN 27 pg (27-31); MEAN CORPUSCULAR HGB CONC 33 g/dL (33-37); MEAN CORPUSCULAR VOLUME 81.7 fL (80-94); MONOCYTES # (AUTO) 0.4 K/uL (0.8-1.0); MONOCYTES % (AUTO) 4.1 % (1.7-9.3); NEUTROPHILS # (AUTO) 6.1 K/uL (1.8-7.7); PLATELET COUNT (AUTO) 299 K/uL (140-450); RED BLOOD CELL COUNT(AUTO) 5.32 MIL/uL (4.20-5.40); RED CELL DISTRIBUTION WIDTH 14.9 % (11.6-13.7); WHITE BLOOD COUNT (AUTO) 9.6 K/uL (4.8-10.8)
[2019-10-22 03:20] VITALS: BP 110/85
== END 2019-10-22 03:21 | disposition home or self-care (01) ==
LOC: MED 00:50
DX: R10.11 Right upper quadrant pain (principal); E11.10 Type 2 diabetes mellitus with ketoacidosis without coma; K76.0 Fatty (change of) liver, not elsewhere classified; Z88.1 Allergy status to other antibiotic agents; Z79.899 Other long term (current) drug therapy
CPT/HCPCS: 36415; 76705; 80053; 81001; 81025; 82150; 83690; 85025; 96372; 99284; J1885; J2405; Q0092

== ENCOUNTER 2019-10-23 19:13 | Emergency (ER) | payer OTHER ==
[~2019-10-23] VITALS: Ht 160 cm; Wt 139.7 kg
[2019-10-23 19:25] VITALS: BP 116/77
--- NOTE | 2019-10-23 19:34 | NUR ---
PT AMBULATED TO BED #4
[2019-10-23] MEDS ORDERED: NACL 0.9% 1,000 ML IV ONE (19:45)
[2019-10-23] MEDS ORDERED: MORPHINE SULFATE 4 MG/ML SYR IVP ONE (19:45)
--- NOTE | 2019-10-23 19:45 | NUR ---
39 YO F BIB SELF FOR C/C OF 10 LUQ PAIN X4 DAYS. PT WAS SEEN IN THE URGENT CARE TODAY FOR THE SAME REASON AND WAS TOLD TO COME TO THE ER DUE TO INCREASING PAIN AND ELEVATED BP. PT DENIES N/V/D. STATES HER PAIN INCREASES WHEN BREATHING. LBM WAS THIS MORNING SOFT AND FORMED. LUNG SOUNDS CLEAR THROUGHOUT, BOWEL SOUNDS NORMOACTIVE TRHOUGHOUT. DENIES FEVER, COUHG, SOB. BED LOCKED AND IN LOWEST POSITION. SIDE RAILS X1. EVS ATTENDANT IN PLACE. ALLERGIES TO AMOXICILLIN RX: INSULIN MED HX: DM2, ANXIETY, DEPRESSION
--- NOTE | 2019-10-23 20:00 | NUR ---
LABS AND URINE COLLECTED AND SENT TO LAB
--- NOTE | 2019-10-23 20:08 | NUR ---
X RAY AT BEDSIDE
[2019-10-23 20:12] LABS: BASOPHILS # (AUTO) 0.1 K/uL (0.00-0.22); BASOPHILS % (AUTO) 1.1 % (0.0-2.0); EOSINOPHILS # (AUTO) 0.2 K/uL (0-0.4); EOSINOPHILS % (AUTO) 1.8 % (0.0-4.0); HEMATOCRIT 42.7 % (36-48); LYMPHOCYTES # (AUTO) 2.8 K/uL (2.5-16.5); LYMPHOCYTES % (AUTO) 28.2 % (20.5-51.1); MEAN CORPUSCULAR HEMOGLOBIN 27 pg (27-31); MEAN CORPUSCULAR HGB CONC 33 g/dL (33-37); MEAN CORPUSCULAR VOLUME 82.3 fL (80-94); MONOCYTES # (AUTO) 0.5 K/uL (0.8-1.0); MONOCYTES % (AUTO) 5.3 % (1.7-9.3); NEUTROPHILS # (AUTO) 6.3 K/uL (1.8-7.7); NEUTROPHILS % (AUTO) 63.6 % (42.2-75.2); PLATELET COUNT (AUTO) 274 K/uL (140-450); RED BLOOD CELL COUNT(AUTO) 5.19 MIL/uL (4.20-5.40); RED CELL DISTRIBUTION WIDTH 14.6 % (11.6-13.7); WHITE BLOOD COUNT (AUTO) 9.8 K/uL (4.8-10.8)
--- NOTE | 2019-10-23 20:30 | NUR ---
PT RESTING IN BED COMFORTBALY. PT STATES HER PAIN HAS DECREASED FROM 8/10 TO 5/10 POST IVP OF MORPHINE. PT ON RETAIL FURNITURE SALES. SAFETY MEASURES IN PLACE.
[2019-10-23 20:39] LABS: ALBUMIN 3.3 g/dL (3.4-5.0); ANION GAP 12.5 (8-16); CARBON DIOXIDE 29.4 mmol/L (21-32); CREATININE 0.8 mg/dL (0.6-1.3); POTASSIUM 3.9 mmol/L (3.5-5.1); TOTAL BILIRUBIN 0.4 mg/dL (0.0-1.0)
[2019-10-23] MEDS ORDERED: INSULIN REGULAR, HUMAN 100 UNIT/ML VIAL IVP ONE (20:45)
--- NOTE | 2019-10-23 20:45 | NUR ---
PT TAKEN TO CT VIA WHEELCHAIR
--- NOTE | 2019-10-23 21:05 | NUR ---
PT RETURNED FROM CT VIA WHEELCHAIR
[2019-10-23 22:15] VITALS: BP 119/72
== END 2019-10-23 22:15 | disposition home or self-care (01) ==
LOC: MED 19:13
DX: K76.0 Fatty (change of) liver, not elsewhere classified (principal); E11.65 Type 2 diabetes mellitus with hyperglycemia; F19.10 Other psychoactive substance abuse, uncomplicated; F41.9 Anxiety disorder, unspecified; I10 Essential (primary) hypertension; Z88.1 Allergy status to other antibiotic agents
CPT/HCPCS: 36415; 71045; 74177; 80053; 81002; 81025; 83690; 85025; 96361; 96374; 99285; J2270; J7030; Q0092; Q9967; J1815

== ENCOUNTER 2020-08-05 11:09 | Emergency (ER) | payer OTHER ==
[~2020-08-05] VITALS: Ht 160 cm; Wt 136.1 kg
[2020-08-05 11:17] VITALS: BP 116/72
--- NOTE | 2020-08-05 11:27 | NUR ---
EMT at bedside for EKG
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
--- NOTE | 2020-08-05 11:38 | NUR ---
Lab at bedside
--- NOTE | 2020-08-05 11:40 | NUR ---
X-ray at bedside
--- NOTE | 2020-08-05 11:45 | NUR ---
Dr. Adan is evaluating patient at bedside.
[2020-08-05 11:47] LABS: BASOPHILS # (AUTO) 0.1 K/uL (0.00-0.22); BASOPHILS % (AUTO) 0.9 % (0.0-2.0); EOSINOPHILS # (AUTO) 0.3 K/uL (0-0.4); EOSINOPHILS % (AUTO) 3.3 % (0.0-4.0); HEMOGLOBIN 13.1 g/dL (12.0-16.0); LYMPHOCYTES % (AUTO) 26.1 % (20.5-51.1); MEAN CORPUSCULAR HEMOGLOBIN 26 pg (27-31); MEAN CORPUSCULAR HGB CONC 33 g/dL (33-37); MEAN CORPUSCULAR VOLUME 79.1 fL (80-94); MONOCYTES # (AUTO) 0.3 K/uL (0.8-1.0); MONOCYTES % (AUTO) 3.8 % (1.7-9.3); NEUTROPHILS # (AUTO) 5.1 K/uL (1.8-7.7); NEUTROPHILS % (AUTO) 65.9 % (42.2-75.2); PLATELET COUNT (AUTO) 289 K/uL (140-450); RED BLOOD CELL COUNT(AUTO) 5.06 MIL/uL (4.20-5.40); RED CELL DISTRIBUTION WIDTH 14.7 % (11.6-13.7); WHITE BLOOD COUNT (AUTO) 7.8 K/uL (4.8-10.8)
--- NOTE | 2020-08-05 11:50 | NUR ---
Patient presents with both eyes open lying on left side. monitoring tech remains in place. Respirations even/unlabored. Bed locked in lowest position, side rails x 1, call light in reach.
[2020-08-05 12:03] LABS: ALBUMIN 3.2 g/dL (3.4-5.0); ANION GAP 12.8 (8-16); CARBON DIOXIDE 25.9 mmol/L (21-32); CREATININE 0.7 mg/dL (0.6-1.3); POTASSIUM 3.7 mmol/L (3.5-5.1); TOTAL BILIRUBIN 0.4 mg/dL (0.0-1.0)
--- NOTE | 2020-08-05 12:10 | NUR ---
Patient ambulated to restroom with steady/even gait for urine sample.
--- NOTE | 2020-08-05 12:18 | NUR ---
Signature obtained for consent form
--- NOTE | 2020-08-05 12:19 | NUR ---
photo technician disconnected pt from ekg monitor; transported patient to CT via gurney.
--- NOTE | 2020-08-05 12:36 | NUR ---
Patient returned from CT via gurney. Pt placed back onto assembler adjuster and in low-fowlers position for patient comfort. Bed locked in lowest position, side rails x 1, call light in reach.
--- NOTE | 2020-08-05 12:46 | NUR ---
Lights dimmed, water cup provided per pt request. monitor tech remains in place. Respirations even/unlabored. All pt needs met at this time.
[2020-08-05] MEDS ORDERED: FLUC100T PO (13:35)
--- NOTE | 2020-08-05 13:42 | NUR ---
Patient presents with both eyes closed lying on right side. quality assurance monitor body remains in place. Respirations even/unlabored. Bed locked in lowest position, side rails x 1, call light in reach.
--- NOTE | 2020-08-05 13:50 | NUR ---
Patient SpO2 while sleeping 88% at this time. Awaken by RN and pt denies any shortness of breath; states sleep apnea and lower SpO2 normal when asleep. Dr. Deutsch made aware.
[2020-08-05 14:24] VITALS: BP 106/56
--- NOTE | 2020-08-05 14:24 | NUR ---
Patient discharged with v/s stable. Written and verbal after care instructions given and explained. Patient alert, oriented and verbalized understanding of instructions. Ambulatory with steady gait. All questions addressed prior to discharge. ID band removed. Patient advised to follow up with PMD. Rx of Fluconazole given. Patient educated on indication of medication including possible reaction and side effects. Opportunity to ask questions provided and answered.
== END 2020-08-05 14:24 | disposition home or self-care (01) ==
LOC: MED 11:09
DX: R07.9 Chest pain, unspecified (principal); R20.2 Paresthesia of skin; M79.602 Pain in left arm; M79.605 Pain in left leg
CPT/HCPCS: 36415; 70450; 71045; 71275; 80053; 81002; 81025; 84484; 85025; 99285; Q9967

== ENCOUNTER 2021-11-06 02:51 | Emergency (ER) | payer OTHER ==
[~2021-11-06] VITALS: Ht 160 cm; Wt 117.0 kg
[~2021-11-06 02:51] MED LIST changes: +FLUC100T PO
[2021-11-06 03:05] VITALS: BP 134/79
--- NOTE | 2021-11-06 03:17 | NUR ---
PT TO BED 07 VIA W/C
--- NOTE | 2021-11-06 03:21 | NUR ---
ERMD AT BEDSIDE.
[2021-11-06] MEDS ORDERED: NACL 0.9% 1,000 ML IV ONE (03:30)
--- NOTE | 2021-11-06 03:40 | NUR ---
PATIENT TAKEN TO CT VIA MELA
--- NOTE | 2021-11-06 03:50 | NUR ---
IV ESTABLISHED 22G RIGHT AC
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
--- NOTE | 2021-11-06 04:44 | NUR ---
PATIENT RESTING IN BED. BED LOW AND LOCKED. SIDE RAIL UP FOR SAFETY. ALL NEEDS MET.
--- NOTE | 2021-11-06 05:27 | NUR ---
PATIENT RESTING IN BED. PROVIDED MORE BLANKETS TO PATIENT FOR COMFORT. BED LOW AND LOCKED. ALL NEEDS MET
[2021-11-06] MEDS ORDERED: fentaNYL citrate 0.05 MG/ML VIAL IVP ONE (06:05)
--- NOTE | 2021-11-06 06:23 | NUR ---
PT REFUSED PAIN MEDICATION. MEDICATION DRAWN UP AND WASTED AT BEDSIDE. ESTHER LEIVA WITNESS.
[2021-11-06] MEDS ORDERED: ALPR1TAB2 PO (06:25)
--- NOTE | 2021-11-06 06:26 | NUR ---
PT ASSISTED TO RR VIA W/C
--- NOTE | 2021-11-06 06:30 | NUR ---
PT BACK IN BED. PLACED ON FEATHER SAWYER. ALL NEEDS MET AT THIS TIME. BED LOCKED IN LOWEST POSITION, SIDE RAILS X1 PER PT, STATED SHE FEELS ANXIOUS WITH 2 RAILS UP.
[2021-11-06 06:36] LABS: BASOPHILS % (AUTO) 0.6 % (0.0-2.0); EOSINOPHILS # (AUTO) 0.2 K/uL (0-0.4); EOSINOPHILS % (AUTO) 1.9 % (0.0-4.0); HEMATOCRIT 31.5 % (36-48); HEMOGLOBIN 9.9 g/dL (12.0-16.0); LYMPHOCYTES # (AUTO) 3.1 K/uL (2.5-16.5); LYMPHOCYTES % (AUTO) 35.5 % (20.5-51.1); MEAN CORPUSCULAR HEMOGLOBIN 21 pg (27-31); MEAN CORPUSCULAR HGB CONC 32 g/dL (33-37); MEAN CORPUSCULAR VOLUME 66.6 fL (80-94); MONOCYTES # (AUTO) 0.4 K/uL (0.8-1.0); MONOCYTES % (AUTO) 4.3 % (1.7-9.3); NEUTROPHILS % (AUTO) 57.7 % (42.2-75.2); PLATELET COUNT (AUTO) 294 K/uL (140-450); RED BLOOD CELL COUNT(AUTO) 4.73 MIL/uL (4.20-5.40); RED CELL DISTRIBUTION WIDTH 20.3 % (11.6-13.7); WHITE BLOOD COUNT (AUTO) 8.6 K/uL (4.8-10.8)
[2021-11-06 06:48] LABS: ANION GAP 8.9 (8-16); CARBON DIOXIDE 27.7 mmol/L (21-32); CREATININE 0.6 mg/dL (0.6-1.3); POTASSIUM 3.6 mmol/L (3.5-5.1)
--- NOTE | 2021-11-06 06:50 | NUR ---
PATIENT RESTING IN BED. BED LOW AND LOCKED. SIDE RAIL UP FOR SAFETY. ALL NEEDS MET
--- NOTE | 2021-11-06 07:15 | NUR ---
REPORT RECEIVED FORM CALI SANTANA
--- NOTE | 2021-11-06 07:20 | NUR ---
REPORT GIVEN TO ESTHER RICHMOND. TRANSFER OF CARE
[2021-11-06 07:35] LABS: PROTHROMBIN TIME 10.3 secs (10.8-13.4)
--- NOTE | 2021-11-06 07:40 | NUR ---
CALLED REPORT OVER TO [facility]. PT IS A ER TO ER TRANSFER. REPORT GIVEN TO CALI RANKIN EMS ARRIVAL 60-90 MINS
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
--- NOTE | 2021-11-06 08:51 | NUR ---
ETA OF EMS TRANSPORT OF 45-60
--- NOTE | 2021-11-06 09:15 | NUR ---
[facility] ARRIVAL TO TRANSPORT PT. ALL PAPERWORK GIVEN OVER
[2021-11-06 09:24] VITALS: BP 103/52
--- NOTE | 2021-11-06 09:24 | NUR ---
Patient to be transferred to [facility]. Is being transferred due to HIGHER LEVEL OF CARE. Receiving facility has accepting physician and available space. ER physician has signed transfer form. Patient or responsible alliance party has agreed to transfer and signed form. Patient belongings inventoried and will be sent with patient. Copy of nursing notes, lab reports, EKG, Physicians Orders and X-rays to be sent with patient. Report called to LILIAN GARRETT at receiving facility. [facility] ambulance service has been called for transfer. ETA is 25.
--- NOTE | 2021-11-06 09:37 | NUR ---
The patient's care was reviewed and supervised by Carly Dumont RN.
== END 2021-11-06 09:24 | disposition short-term general hospital (02) ==
LOC: MED 02:51
DX: S06.2X0A Diffuse traumatic brain injury without loss of consciousness, initial encounter (principal); Z20.822 Contact with and (suspected) exposure to COVID-19; F07.81 Postconcussional syndrome; E11.9 Type 2 diabetes mellitus without complications; I10 Essential (primary) hypertension; Z98.890 Other specified postprocedural states; Z79.899 Other long term (current) drug therapy; Z88.0 Allergy status to penicillin; V89.2XXA Person injured in unspecified motor-vehicle accident, traffic, initial encounter; Y93.89 Activity, other specified; Y92.410 Unspecified street and highway as the place of occurrence of the external cause; Y99.8 Other external cause status
CPT/HCPCS: 36415; 70450; 80048; 85025; 85610; 85730; 87426; 96360; 99285; J3010; J7030

== ENCOUNTER 2021-12-10 00:52 | Emergency (ER) | payer OTHER ==
[~2021-12-10] VITALS: Ht 160 cm; Wt 117.9 kg
[~2021-12-10 00:52] MED LIST changes: +ALPR1TAB2 PO
[2021-12-10 01:14] VITALS: BP 151/90
--- NOTE | 2021-12-10 01:25 | NUR ---
PT TO BED 1
--- NOTE | 2021-12-10 01:30 | NUR ---
PT UNABLE TO PROVIDE URINE
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
--- NOTE | 2021-12-10 02:25 | NUR ---
PT UNABLE TO PROVIDE URINE
[2021-12-10] MEDS ORDERED: KETOROLAC 60 MG/2 ML VIAL IM ONE (03:05)
--- NOTE | 2021-12-10 03:25 | NUR ---
PROVIDED PT WITH MEG
[2021-12-10 03:27] VITALS: BP 148/90
--- NOTE | 2021-12-10 04:27 | NUR ---
PT LEFT WITHOUT SIGNING DISHCHARGE PAPERWORK.
[2021-12-10] MEDS ORDERED: DIAZ10TA7 PO (04:31)
[2021-12-10] MEDS ORDERED: IBUP-2213 PO (04:31)
== END 2021-12-10 04:27 | disposition home or self-care (01) ==
LOC: MED 00:52
DX: R42 Dizziness and giddiness (principal); E11.9 Type 2 diabetes mellitus without complications; Z79.899 Other long term (current) drug therapy; Z88.1 Allergy status to other antibiotic agents; Z98.890 Other specified postprocedural states; Z98.84 Bariatric surgery status
CPT/HCPCS: 81002; 81025; 93005; 96372; 99283; J1885

== ENCOUNTER 2021-12-20 22:40 | Emergency (ER) | payer OTHER ==
[~2021-12-20] VITALS: Ht 160 cm; Wt 121.6 kg
[~2021-12-20 22:40] MED LIST changes: +DIAZ10TA7 PO; +IBUP-2213 PO
[2021-12-20 22:51] VITALS: BP 130/90
--- NOTE | 2021-12-20 22:58 | NUR ---
Patient ambulated to bed 11.
--- NOTE | 2021-12-20 23:35 | NUR ---
[facility] EXAMINING PT
--- NOTE | 2021-12-20 23:40 | NUR ---
PATIENT AMBULATED TO RR
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
[2021-12-20] MEDS ORDERED: KETOROLAC 60 MG/2 ML VIAL IM ONE (23:55)
--- NOTE | 2021-12-21 00:12 | NUR ---
PT TAKEN TO CT.
--- NOTE | 2021-12-21 00:43 | NUR ---
BACK FROM CT.
--- NOTE | 2021-12-21 00:44 | NUR ---
PT MEDICATED PER ORDER.
--- NOTE | 2021-12-21 01:07 | NUR ---
PT GIVEN CRACKERS PER REQUEST
[2021-12-21 02:50] VITALS: BP 128/84
== END 2021-12-21 02:50 | disposition home or self-care (01) ==
LOC: MED 22:40
DX: F07.81 Postconcussional syndrome (principal); E11.9 Type 2 diabetes mellitus without complications; Z88.6 Allergy status to analgesic agent; Z88.1 Allergy status to other antibiotic agents; Z79.4 Long term (current) use of insulin; Z79.899 Other long term (current) drug therapy
CPT/HCPCS: 70450; 96372; 99284; J1885

== ENCOUNTER 2022-03-04 05:23 | Emergency (ER) | payer OTHER ==
[~2022-03-04] VITALS: Ht 160 cm; Wt 114.8 kg
[2022-03-04 05:35] VITALS: BP 142/93
--- NOTE | 2022-03-04 05:42 | NUR ---
PT TO [facility].
[2022-03-04] MEDS ORDERED: KETOROLAC 15 MG/ML VIAL IM ONE (06:40)
[2022-03-04] MEDS ORDERED: PRED20TA5 PO (06:46)
[2022-03-04] MEDS ORDERED: DICL100G5 TP (06:46)
[2022-03-04 07:22] VITALS: BP 134/70
--- NOTE | 2022-03-04 07:23 | NUR ---
Patient discharged with v/s stable. Written and verbal after care instructions given and explained. Patient alert, oriented and verbalized understanding of instructions. Ambulatory with steady gait. All questions addressed prior to discharge. ID band removed. Patient advised to follow up with PMD. Rx SENT TO PHARMACY. Patient educated on indication of medication including possible reaction side effects. Opportunity to ask questions provided and answered.
== END 2022-03-04 07:22 | disposition home or self-care (01) ==
LOC: MED 05:23
DX: M54.16 Radiculopathy, lumbar region (principal); F32.A Depression, unspecified
CPT/HCPCS: 96372; 99283; J1885